=== PATIENT | male | born 1990 | race African-American/Black ===

== ENCOUNTER 2019-03-28 06:19 | Emergency (ER) | payer SELFPAY ==
--- NOTE | 2019-03-28 06:26 | PDOC ---
History of Present Illness - General Chief Complaint: Pain, Acute Stated Complaint: RIGHT EAR ACHE FOR WEEKS Time Seen by Provider: 03/28/19 06:26 History Source: Patient Exam Limitations: No Limitations - History of Present Illness Initial Comments: 03/28/19 06:47 presents with sharp, r sided headache, constant now x several days, baseline pounding with intermittent sharpness. started as R earache also reports R upper toothache Timing/Duration: reports: constant Quality: reports: moderate, stabbing, other (pounding) Pain Radiation: reports: no radiation Activities at Onset: reports: working. denies: exertion Treatment Prior to Arrive: improves with: analgesics Aggravating Factors: improves with: None Alleviating Factors: improves with: None Past History - Past Medical History Allergies/Adverse Reactions: Allergies Allergy/AdvReac Type Severity Reaction Status Date / Time No Known Allergies Allergy Verified 03/28/19 06:21 Home Medications: Ambulatory Orders NK [No Known Home Medication] 03/28/19 - Suicide/Smoking/Psychosocial Hx Smoking Status: Yes Smoking History: Current every day smoker Number of Cigarettes Smoked Daily: 10 'Breaking Loose' booklet given: 08/04/14 Hx Alcohol Use: Yes (occasionally) Drug/Substance Use Hx: No Substance Use Type: None Review of Systems - Review of Systems All Other Systems: Reviewed and Negative *Physical Exam - Physical Exam General Appearance: Yes: Nourished, Appropriately Dressed HEENT: positive: EOMI, NIECY, Other (cerumen impaction r ear; no tooth infections ). 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, Fully Oriented, Alert, Motor Strength 5/5 Medical Decision Making - Medical Decision Making 03/28/19 06:51 cerumen impaction unilateral headache in young male with nl neuro exam H2O2 for cerumen ketorolac/ reglan for headache reevaluae after headache relief *DC/Admit/Observation/Transfer Diagnosis at time of Disposition: Impacted cerumen Qualifiers: Laterality: right Qualified Code(s): H61.21 - Impacted cerumen, right ear Headache Qualifiers: Headache type: unspecified Headache chronicity pattern: acute headache - Discharge Dispostion Condition at time of disposition: Stable - Referrals - Patient Instructions - Post Discharge Activity
[2019-03-28 06:29] VITALS: BP 140/88; PULSE 69; TEMP 98; BMI 28.2
[2019-03-28] MEDS ORDERED: METOCLOPRAMIDE HCL INJECTION 10 MG/2 ML VIAL IVPUSH ONE (06:33)
[2019-03-28] MEDS ORDERED: KETOROLAC TROMETHAMINE 15 MG/ML VIAL IVPUSH ONE (06:33)
[2019-03-28] MEDS ORDERED: METOCLOPRAMIDE HCL INJECTION 10 MG/2 ML VIAL ONE (06:41)
[2019-03-28] MEDS ORDERED: KETOROLAC TROMETHAMINE 15 MG/ML VIAL ONE (06:41)
--- NOTE | 2019-03-28 07:36 | PDOC ---
*Physical Exam - Vital Signs Last Vital Signs Temp Pulse Resp BP Pulse Ox 98 F 69 16 140/88 98 03/28/19 06:25 03/28/19 06:25 03/28/19 06:25 03/28/19 06:25 03/28/19 06:25 - Physical Exam Comments: Received patient at shift change Feels much improved after medication prescribed 03/28/19 07:43 General Appearance: Yes: Nourished, Appropriately Dressed, Mild Distress HEENT: positive: Other (Righ ear pain, wax in the ear) Neck: positive: Supple ED Treatment Course - Medications Given in the ED: ED Medications Discontinued Medications Generic Name Dose Route Start Last Admin Trade Name Freq PRN Reason Stop Dose Admin Ketorolac Tromethamine 15 mg 03/28/19 06:33 03/28/19 06:48 Toradol Injection - IVPUSH 03/28/19 06:34 15 mg ONCE ONE Administration Metoclopramide HCl 10 mg 03/28/19 06:33 03/28/19 06:48 Reglan Injection - IVPUSH 03/28/19 06:34 10 mg ONCE ONE Administration Progress Note - Progress Note Progress Note: Alert oriented x 3, Neck suple no periauricular pain Normal dental Cerumen impact right ear Pain from 9 on the scale, down to 3 or 4 Medical Decision Making - Medical Decision Making Patient will continue medication as prescribed will follow up with ENT MD 03/28/19 07:47 *DC/Admit/Observation/Transfer Diagnosis at time of Disposition: Impacted cerumen Qualifiers: Laterality: right Qualified Code(s): H61.21 - Impacted cerumen, right ear Headache Qualifiers: Headache type: unspecified Headache chronicity pattern: acute headache - Discharge Dispostion Disposition: HOME Condition at time of disposition: Stable Decision to Admit order: No - Referrals Referrals: Ralph Mensah MD [Staff Physician] - - Patient Instructions Printed Discharge Instructions: DI for Cerumen Impaction - Post Discharge Activity Forms/Work/School Notes: Back to Work
== END 2019-03-28 08:10 | disposition home or self-care (01) ==
LOC: FER 06:19
PROC: 3E0333Z Introduction of Anti-inflammatory into Peripheral Vein, Percutaneous Approach (ICD-10-PCS; principal; 2019-03-28)
PROC: 3E033GC Introduction of Other Therapeutic Substance into Peripheral Vein, Percutaneous Approach (ICD-10-PCS; 2019-03-28)
DX: H61.21 Impacted cerumen, right ear (principal)
CPT/HCPCS: 99281-25

== ENCOUNTER 2019-05-02 15:54 | Emergency (ER) | payer SELFPAY ==
[2019-05-02 16:01] VITALS: BP 150/90; PULSE 72; TEMP 98.3; BMI 28.2
--- NOTE | 2019-05-02 16:23 | PDOC ---
History of Present Illness - General Chief Complaint: Toothache Stated Complaint: MIGRAINE Time Seen by Provider: 05/02/19 16:15 - History of Present Illness Initial Comments: 05/02/19 16:20 28 y/p M w/o CM presents for evaluation of toothache x1 month s/p root canal Past History - Past Medical History Allergies/Adverse Reactions: Allergies Allergy/AdvReac Type Severity Reaction Status Date / Time No Known Allergies Allergy Verified 05/02/19 16:01 Home Medications: Ambulatory Orders Carbamide Peroxide [Ear Wax Removal] 15 ml OT TID #1 drops 03/28/19 Ibuprofen [Motrin -] 400 mg PO TID #21 tablet 03/28/19 Amoxicillin - [Amoxicillin 500mg Capsule -] 500 mg PO BID #14 capsule 05/02/19 Ibuprofen [Motrin -] 600 mg PO TID #30 tablet 05/02/19 COPD: No - Immunization History Immunization Up to Date: Yes - Suicide/Smoking/Psychosocial Hx Smoking Status: Yes Smoking History: Current every day smoker Have you smoked in the past 12 months: No Number of Cigarettes Smoked Daily: 10 Information on smoking cessation initiated: Yes 'Breaking Loose' booklet given: 08/04/14 Hx Alcohol Use: No Drug/Substance Use Hx: No Substance Use Type: None Review of Systems - Review of Systems Constitutional: No: Fever HEENTM: Yes: Dental Problems *Physical Exam - Vital Signs Last Vital Signs Temp Pulse Resp BP Pulse Ox 98.3 F 72 17 150/90 100 05/02/19 15:57 05/02/19 15:57 05/02/19 15:57 05/02/19 15:57 05/02/19 15:57 - Physical Exam Comments: 05/02/19 16:20 OP clear, temporary filling in place R lower molar no erythema about gums General Appearance: Yes: Nourished HEENT: positive: EOMI, Normal ENT Inspection, Symmetrical Neck: positive: Trachea midline Respiratory/Chest: negative: Respiratory Distress Musculoskeletal: positive: Normal Inspection Medical Decision Making - Medical Decision Making 05/02/19 16:21 percocet in the ER, amoxicillin and motrin f/u w/endodontics *DC/Admit/Observation/Transfer Diagnosis at time of Disposition: Toothache - Discharge Dispostion Disposition: HOME Condition at time of disposition: Stable Decision to Admit order: No - Prescriptions Prescriptions: Amoxicillin - [Amoxicillin 500mg Capsule -] 500 mg PO BID #14 capsule Ibuprofen [Motrin -] 600 mg PO TID #30 tablet - Referrals - Patient Instructions Printed Discharge Instructions: DI for Dental Pain Additional Instructions: Please take the antibiotics as directed and without fail follow up with your dentist in 1-2 days. Return to the emergency room should symptoms worsen - Post Discharge Activity
== END 2019-05-02 16:46 | disposition home or self-care (01) ==
LOC: JERFT 15:54
DX: K08.89 Other specified disorders of teeth and supporting structures (principal); F17.210 Nicotine dependence, cigarettes, uncomplicated
CPT/HCPCS: 99281-25

== ENCOUNTER 2020-03-19 11:47 | Emergency (ER) | payer OTHER ==
[2020-03-19 12:03] VITALS: BP 122/90; PULSE 75; TEMP 98; BMI 33.6
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
[2020-03-19] MEDS ORDERED: ACETAMINOPHEN 1000 MG/100 ML VIAL (NON FORMULARY) IVPB ONE (13:58)
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
[2020-03-19] MEDS ORDERED: ACETAMINOPHEN INJECTION 100 ML IVPB ONE (14:39)
[2020-03-19 15:00] LABS: HEMATOCRIT 42.7 % (35.4-49); HEMOGLOBIN 14.2 GM/dL (11.7-16.9); MCH 31.6 pg (25.7-33.7); MCHC 33.2 g/dl (32.0-35.9); MEAN CELL VOLUME 95.4 fl (80-96); MEAN PLT VOLUME 8.3 fl (7.5-11.1); PLATELET COUNT 293 K/MM3 (134-434); RBC 4.47 M/mm3 (4.00-5.60); RDW 14.1 % (11.9-15.9); WHITE BLOOD COUNT 7.4 K/mm3 (4.0-10.0)
[2020-03-19 15:40] LABS: ALBUMIN 3.9 g/dl (3.4-5.0); ALK PHOS 88 U/L (45-117); ANION GAP 7 MMOL/L (8-16); BILIRUBIN,TOTAL 0.4 mg/dL (0.2-1); CALCIUM 9.1 mg/dL (8.5-10.1); CHLORIDE 108 mmol/L (98-107); CO2 26 mmol/L (21-32); CREATININE 1.4 mg/dL (0.55-1.3); GLUCOSE,RANDOM 88 mg/dL (74-106); POTASSIUM 4.3 mmol/L (3.5-5.1); SGOT/AST 25 U/L (15-37); SGPT/ALT 56 U/L (13-61); SODIUM 141 mmol/L (136-145); TOT PROT 7.6 g/dl (6.4-8.2)
[2020-03-19 16:11] LABS: INR 0.93 (0.83-1.09)
--- NOTE | 2020-03-20 09:08 | EKG ---
Test Reason : Blood Pressure : / mmHG Vent. Rate : 066 BPM Atrial Rate : 066 BPM P-R Int : 150 ms QRS Dur : 102 ms QT Int : 422 ms P-R-T Axes : -10 007 -08 degrees QTc Int : 442 ms NORMAL SINUS RHYTHM VOLTAGE CRITERIA FOR LEFT VENTRICULAR HYPERTROPHY ST ELEVATION, CONSIDER EARLY REPOLARIZATION, PERICARDITIS, OR INJURY ABNORMAL ECG NO PREVIOUS ECGS AVAILABLE Confirmed by Christiano Mchugh ([id number]) on 03/20/2020 9:08:22 AM Referred By: Confirmed By:Christiano Mchugh
== END 2020-03-19 18:10 | disposition home or self-care (01) ==
LOC: JER 11:47
PROC: 3E033NZ Introduction of Analgesics, Hypnotics, Sedatives into Peripheral Vein, Percutaneous Approach (ICD-10-PCS; principal; 2020-03-19)
DX: R06.02 Shortness of breath (principal); S22.31XA Fracture of one rib, right side, initial encounter for closed fracture
CPT/HCPCS: 36415; 71046-TC-FY; 71275-TC; 80053; 84484; 85027; 85610; 85730; 93005; 93010; 99285-25; J0131; Q9967

== ENCOUNTER 2021-02-11 19:51 | Emergency (ER) | payer OTHER ==
[2021-02-11 20:13] VITALS: BP 110/70; PULSE 94; TEMP 100.7; BMI 30.3
[2021-02-11] MEDS ORDERED: ACETAMINOPHEN 1000 MG/100 ML VIAL (NON FORMULARY) IVPB ONE (22:21)
[2021-02-11] MEDS ORDERED: SODIUM CHLORIDE 0.9% 500 ML INFUS.BAG IV ONE (22:21)
== END 2021-02-11 23:26 | disposition left against medical advice (07) ==
LOC: JER 19:51
DX: R07.9 Chest pain, unspecified (principal)
CPT/HCPCS: 93005; 93010; 99283-25